=== PATIENT | male | born 1965 | race African-American/Black ===

== ENCOUNTER 2024-01-27 01:50 | Emergency (ER) | payer MEDICAID ==
[~2024-01-27] VITALS: Ht 175.3 cm; Wt 100.0 kg
[2024-01-27 02:24] VITALS: PULSE 97; RESP 24; O2SAT 99
[2024-01-27] MEDS: IPRATROPIUM BROMIDE (0.02%) 0.5MG/2.5ML NEB HHN STA (02:24)
[2024-01-27] MEDS: ALBUTEROL (0.083%) 2.5MG/3ML NEB HHN STA ×2 (02:24→05:17)
[2024-01-27] MEDS: SODIUM CHLORIDE 0.9% 1,000 ML IV ONE (02:29)
[2024-01-27] MEDS: METHYLPREDNISOLONE SOD SUCC 125MG/2ML (ACT-O-VIAL) IV STA (02:29)
[2024-01-27] MEDS: ACETAMINOPHEN 325MG TABLET PO ONE (02:30)
[2024-01-27] MEDS: MAGNESIUM 1 G PREMIX 100 ML IV ONE (02:30)
[2024-01-27 02:59] LABS: BASOPHILS % 0.6 % (0.0-2.0); DIFFERENTIAL COMMENT 0; EOSINOPHILS % 6.5 % (0.0-5.0); HEMATOCRIT. 38.9 % (42.0-52.0); HEMOGLOBIN. 12.6 g/dL (14.0-18.0); LYMPHOCYTES % 26.4 % (20.0-50.0); MEAN CORPUSCULAR HEMOGLOBIN 22.8 pg (28.0-32.0); MEAN CORPUSCULAR HGB CONC 32.4 g/dL (31.0-37.0); MEAN CORPUSCULAR VOLUME 70.5 fL (80.0-94.0); MEAN PLATELET VOLUME 7.5 fl (7.4-10.4); MONOCYTES % 8.2 % (2.0-8.0); NEUTROPHILS % 58.3 % (40.0-76.0); PLATELET 324 x1000/uL (130-400); RED BLOOD CELL COUNT 5.53 mill/uL (4.7-6.1); RED CELL DISTRIBUTION WIDTH 16.1 % (11.6-14.6); WHITE BLOOD COUNT 7.1 x1000/uL (4.5-11.0)
[2024-01-27 03:05] LABS: CHLORIDE 100 mEq/L (98-107); POTASSIUM 3.6 mEq/L (3.5-5.1); SODIUM 139 mEq/L (136-145)
[2024-01-27 03:06] LABS: CALCIUM 8.7 mg/dL (8.7-10.4); CARBON DIOXIDE 34 mEq/L (21-32)
[2024-01-27 03:11] LABS: CREATININE 0.9 mg/dL (0.6-1.3); GLUCOSE 94 mg/dL (70-105)
[2024-01-27] MEDS ORDERED: ALBU6.7H15 INH (04:16)
[2024-01-27] MEDS ORDERED: P20 MT (04:16)
[2024-01-27 04:35] LABS: UREA NITROGEN BLOOD 11 mg/dL (9-23)
[2024-01-27 05:01] VITALS: TEMP 98.5
[2024-01-27 05:17] VITALS: PULSE 97; RESP 22; O2SAT 98
[2024-01-27 06:00] VITALS: BP 128/87; PULSE 87; RESP 30
== END 2024-01-27 07:50 | disposition left against medical advice (07) ==
LOC: ER 01:50 → CANBEDREQ 01-28 07:24
DX: J98.01 Acute bronchospasm (principal); Z00.00 Encounter for general adult medical examination without abnormal findings
CPT/HCPCS: 80048; 85025; 36415; 71045; 94640; 93005; 96365; 96375; 99285; J3475; J2919; Z7610 ×6; J7030